=== PATIENT | male | born 1990 | race Caucasian/White ===

== ENCOUNTER 2023-08-22 10:30 | Emergency (ER) | payer BC, SELFPAY ==
[~2023-08-22] VITALS: Ht 185.4 cm; Wt 100.2 kg
[2023-08-22 11:57] VITALS: BP 124/91; TEMP 99.4; O2SAT 98
== END 2023-08-22 12:31 | disposition home or self-care (01) ==
LOC: M ED 10:30
DX: J10.1 Influenza due to other identified influenza virus with other respiratory manifestations (principal); Z87.891 Personal history of nicotine dependence